=== PATIENT | female | born 1985 | race Caucasian/White ===

== ENCOUNTER → 2017-11-05 | Outpatient (CLI) | payer BC ==
[~2017-11-05] MED LIST: ADVIN10/60 INH; ALBUAER2 INH; LORA10CA2 PO; PRENTAB26 PO; SNG10 PO
[2017-11-05 12:47] LABS: BASO % 0.2 %; BASO ABS # 0.02 K/uL (0-0.2); COMPLETE YES; EOS % 3.6 %; HEMATOCRIT 43.1 % (37-47); IG% 0.1 %; LYMPH % 34.5 %; MEAN CELL VOLUME 90.2 fL (80-100); MEAN CORPUSCULAR HGB CONC 34.3 g/dl (32-36); MEAN PLATELET VOLUME 10.7 fL (7.4-10.4); NEUT % 52.6 %; PLATELET COUNT 283 K/uL (130-400); RED BLOOD COUNT 4.78 M/uL (4.2-5.4)
[2017-11-05 12:52] LABS: ALT/SGPT 21 U/L (12-78); BLOOD UREA NITROGEN 16 mg/dl (7-18); BUN/CREATININE RATIO 24.5 (10-20); CALCIUM 8.6 mg/dl (8.5-10.1); CARBON DIOXIDE 24 mmol/L (21-32); CHLORIDE 108 mmol/L (98-107); CHOLESTEROL 156 mg/dl (0-200); CREATININE 0.67 mg/dl (0.60-1.20); GLUCOSE 92 mg/dl (70-99); SODIUM 139 mmol/L (136-145)
[2017-11-05 13:02] LABS: ALB/GLOB RATIO 1.1 (0.9-2); ALKALINE PHOSPHATASE 84 U/L (45-117); AST/SGOT 13 U/L (15-37); CHOLESTEROL/HDL RATIO 3.8; HDL CHOLESTEROL 41 mg/dl; LDL CHOLESTEROL CALCULATED 101 mg/dl; TRIGLYCERIDES 70 mg/dl (0-150); VERY LOW DENSITY LIPOPROT CALC 14 mg/dl
== END | disposition home or self-care (01) ==
LOC: C.LABBFT 07:41
PROVIDERS: ATTEND Physician Assistant
DX: Z00.00 Encounter for general adult medical examination without abnormal findings (principal); R53.81 Other malaise

== ENCOUNTER → 2017-12-16 | Outpatient (CLI) | payer BC ==
--- NOTE | 2017-12-16 12:38 | DIAGNOSTIC IMAGING REPORT ---
L-SPINE MIN 4 VIEWS ROUTINE HISTORY: 32 years-old Female M54.5 Low back [id number] acute low back pain without reported trauma COMPARISON: None available TECHNIQUE: 5 views of the lumbar spine FINDINGS: There are 5 lumbar type vertebral segments present. No acute fracture, subluxation, significant degenerative changes, spondylolysis or spondylolisthesis. Soft tissues are unremarkable. Moderate stool volume of the descending colon, and rectosigmoid. Mild gaseous distention of colon is seen within the midabdomen. IMPRESSION: 1. No acute fracture or subluxation. 2. No significant degenerative changes. The above report was generated using voice recognition software. It may contain grammatical, syntax or spelling errors. Electronically signed by: Alex Ashley M.D. 12/16/2017 12:37 PM Dictated Date/Time: 12/16/2017 12:35 PM
== END | disposition home or self-care (01) ==
LOC: C.RAD1850 12:09
PROVIDERS: ATTEND Physician Assistant
DX: M54.5 Low back pain (principal)

== ENCOUNTER → 2018-03-14 | Outpatient (CLI) | payer BC | END | disposition home or self-care (01) | LOC: C.PAPS 11:26 | PROVIDERS: ATTEND Obstetrics & Gynecology | DX: Z01.411 Encounter for gynecological examination (general) (routine) with abnormal findings (principal) ==

== ENCOUNTER → 2018-03-14 | Outpatient (CLI) | payer BC | END | disposition home or self-care (01) | LOC: C.LABBFT 07:44 | PROVIDERS: ATTEND Physician Assistant | DX: E55.9 Vitamin D deficiency, unspecified (principal) ==

== ENCOUNTER 2018-04-08 09:05 | Emergency (ER) | payer BC ==
[2018-04-08 09:10] VITALS: TEMP 37.5
[2018-04-08] MEDS ORDERED: VNTHFA/IN INH (09:19)
[2018-04-08] MEDS ORDERED: MONT1TAB5 PO (09:19)
[2018-04-08] MEDS ORDERED: CHOL1000 PO (09:19)
[2018-04-08] MEDS ORDERED: ADVIN10050 INH (09:19)
[2018-04-08] MEDS ORDERED: ONDANSETRON INJ 2 MG/ML 2 ML VIAL IV STA (09:31)
[2018-04-08] MEDS ORDERED: SODIUM CHLORIDE 0.9% 1000ML 1,000 ML IV STA (09:31)
[2018-04-08] MEDS ORDERED: ACETAMINOPHEN IV 100 ML IV ONE (09:45)
[2018-04-08 09:59] LABS: BASO % 0.1 %; BASO ABS # 0.01 K/uL (0-0.2); HEMATOCRIT 45.1 % (37-47); HEMOGLOBIN 16.2 g/dL (12.0-16.0); IG# 0.02 K/uL (0.00-0.02); LYMPH % 13.4 %; LYMPH ABS # 1.11 K/uL (1.2-3.4); MEAN CELL VOLUME 88.1 fL (80-100); MEAN CORPUSCULAR HEMOGLOBIN 31.6 pg (25-34); MEAN CORPUSCULAR HGB CONC 35.9 g/dl (32-36); MEAN PLATELET VOLUME 10.1 fL (7.4-10.4); MONO ABS # 1.07 K/uL (0.11-0.59); NEUT % 73.3 %; NEUT ABS # 6.05 K/uL (1.4-6.5); PLATELET COUNT 254 K/uL (130-400); RED CELL DISTRIBUTION WIDTH CV 12.4 % (11.5-14.5); WHITE BLOOD COUNT 8.26 K/uL (4.8-10.8)
[2018-04-08 10:11] LABS: PTT PATIENT 26.1 SECONDS (21.0-31.0)
[2018-04-08 10:23] LABS: ALBUMIN 3.5 gm/dl (3.4-5.0); ALT/SGPT 23 U/L (12-78); AST/SGOT 15 U/L (15-37); BLOOD UREA NITROGEN 9 mg/dl (7-18); CALCIUM 8.4 mg/dl (8.5-10.1); CARBON DIOXIDE 28 mmol/L (21-32); CREATININE 0.75 mg/dl (0.60-1.20); GLUCOSE 110 mg/dl (70-99); LIPASE 84 U/L (73-393); POTASSIUM 3.7 mmol/L (3.5-5.1); SODIUM 138 mmol/L (136-145)
[2018-04-08 10:24] LABS: ALKALINE PHOSPHATASE 75 U/L (45-117); TOTAL PROTEIN 7.8 gm/dl (6.4-8.2)
--- NOTE | 2018-04-08 10:34 | DIAGNOSTIC IMAGING REPORT ---
ABDOMEN 2VIEW W/PA CHEST RTN CLINICAL HISTORY: 32 years-old Female presenting with ABDOMINAL PAIN/GI. TECHNIQUE: PA view of the chest and supine and upright views of the abdomen were obtained. COMPARISON: Chest x-ray from 2006. FINDINGS: Cardiomediastinal silhouette normal. Lungs and pleural spaces clear. Nonobstructive bowel gas pattern. No gross pneumoperitoneum. Allowing for bowel gas and stool, no calcifications to suggest nephrolithiasis. Osseous structures normal. IMPRESSION: 1. No acute cardiopulmonary disease. 2. No radiographic evidence of acute intra-abdominal pathology. Electronically signed by: Dieter Marquez M.D. 04/08/2018 10:33 AM Dictated Date/Time: 04/08/2018 10:32 AM
[2018-04-08] MEDS ORDERED: ONDA4TAB10 SL (11:09)
[2018-04-08 11:10] VITALS: BP 115/68; PULSE 80; O2SAT 100
--- NOTE | 2018-04-08 16:00 | EMERGENCY ROOM VISIT NOTE ---
ED Visit Note First contact with patient: 09:13 Chief Complaint: Diarrhea and abdominal pain. History of Present Illness: Ms. Yarbrough is a 32-year-old white female who ambulates into the ED accompanied by male friend complaining of hematochezia and abdominal pain. Historically patient denies any previous significant gastrointestinal disorders , bleeding disorders or abdominal surgeries. Patient reports around Wednesday, 3-4 days ago, she started having crampy abdominal pain. She reports initially it was mild has gradually increased in intensity. Currently she reports that the pain is diffuse around her lower abdomen without side prominence. Her pain has been constant but has waxed and waned in intensity. Currently she rates her discomfort 6/10. She does report the pain radiates into the lower back. She reports the pain has waxed and waned in intensity in relationship to eating, vomiting and diarrhea. She has not taken any medications for pain prior to arrival at the hospital. She describes her diarrhea as almost one time in our and last night she started noting bright red blood. Before then her pain was all fluid without any formed component. Additionally she reports over the last 24 hours she has had multiple episodes of vomiting a bilious-like material without blood. She has been having chills and feels like she might of been febrile but did not check her temperature and on one episode she had episode of diaphoresis. She denies headache, dizziness, lightheadedness, upper respiratory tract symptoms, chest pain, shortness of breath, upper abdominal pain, vaginal bleeding, vaginal discharge, urinary symptoms, hematuria, abnormal bruising or bleeding, antibiotic use for 3 months but does report she had antibiotics for an upper respiratory tract infection 4 months ago and no travel outside [place] or personal sick contacts. Review of Systems: As noted above in history of present illness. All body systems were reviewed and found to be negative as noted above. Past Medical History: Asthma, bronchitis, pneumonia and status post wisdom teeth extraction. Current Medications: Medications Dose Route/Sig Max Daily Dose Days Date Category Ventolin Hfa (Albuterol) 200 Puffs/88585 Mcg Aers 2 Puffs INH DAILY PRN 04/08/18 Reported Advair Diskus 100-50 Mcg/Dose (Fluticasone Prop/Salmeterol) 14 Puff/1 Inhaler Aerp 1 Puff INH BID 04/08/18 Reported Montelukast Sodium 10 Mg Tab 10 Mg PO DAILY 90 04/08/18 Reported Vitamin D3 (Cholecalciferol) 1,000 Unit Tab 1,000 Units PO DAILY 90 04/08/18 Reported Claritin (Loratadine) 10 Mg Cap 10 Mg PO DAILY 12/17/12 Reported Allergies to Medications: Patient denies. Social History: Patient is currently employed; she feels safe in her home environment; she denies tobacco and alcohol use. Physical Examination: Vital Signs: Date Time Temp Pulse Resp B/P (MAP) Pulse Ox O2 Delivery O2 Flow Rate FiO2 04/08/18 11:10 80 20 115/68 100 04/08/18 09:10 37.5 110 20 109/73 98 Room Air GENERAL: 32-year-old female in mild to moderate distress due to pain, nontoxic- appearing, afebrile and hemodynamically stable. NEUROLOGICAL: Awake, alert and oriented to person, place and time. Answering questions appropriately and following commands. Normal gait. Good hand eye coordination. No focal motor sensory deficits. SKIN: Warm, dry and pink. No soft tissue eruptions or trauma noted. HEENT: Atraumatic and normocephalic. PERRLA. Sclera white and conjunctiva pink. No drainage from naris. Oral cavity moist and pink. Pharynx is nonerythematous or edematous. Speech normal. No lymphadenopathy. Trachea midline. No jugular venous distention. BACK: No tenderness over the bony spine. No CVA tenderness. THORAX: Lungs sounds are clear to auscultation and equal bilaterally with symmetrical chest wall. No wheezing, rales or rhonchi. No crepitus, tenderness , subcutaneous air or deformities noted. HEART: Regular rate and rhythm. No gallops, rubs or murmurs are appreciated. ABDOMEN: Flat, soft and nontender. Positive bowel sounds in all quadrants. No guarding, rigidity or organomegaly. RECTAL: Deferred on patient's request. EXTREMITIES: Moves all extremities well on command and with purpose. All distal neurovascular statuses are intact and equal bilaterally. ED Course: Patient is assessed as noted above. Patient's medication list was reviewed. Laboratory Testing: Test 04/08/18 09:48 Range/Units White Blood Count 8.26 4.8-10.8 K/uL Red Blood Count 5.12 4.2-5.4 M/uL Hemoglobin 16.2 12.0-16.0 g/dL Hematocrit 45.1 37-47 % Mean Corpuscular Volume 88.1 80-100 fL Mean Corpuscular Hemoglobin 31.6 25-34 pg Mean Corpuscular Hemoglobin Concent 35.9 32-36 g/dl Platelet Count 254 130-400 K/uL Mean Platelet Volume 10.1 7.4-10.4 fL Neutrophils (%) (Auto) 73.3 % Lymphocytes (%) (Auto) 13.4 % Monocytes (%) (Auto) 13.0 % Eosinophils (%) (Auto) 0.0 % Basophils (%) (Auto) 0.1 % Neutrophils # (Auto) 6.05 1.4-6.5 K/uL Lymphocytes # (Auto) 1.11 1.2-3.4 K/uL Monocytes # (Auto) 1.07 0.11-0.59 K/uL Eosinophils # (Auto) 0.00 0-0.5 K/uL Basophils # (Auto) 0.01 0-0.2 K/uL RDW Standard Deviation 40.0 36.4-46.3 fL RDW Coefficient of Variation 12.4 11.5-14.5 % Immature Granulocyte % (Auto) 0.2 % Immature Granulocyte # (Auto) 0.02 0.00-0.02 K/uL Prothrombin Time 10.1 9.0-12.0 SECONDS Prothromb Time International Ratio 1.0 0.9-1.1 Activated Partial Thromboplast Time 26.1 21.0-31.0 SECONDS Partial Thromboplastin Ratio 1.0 Urine Color DK YELLOW Urine Appearance CLOUDY CLEAR Urine pH 5.0 4.5-7.5 Urine Specific [place] 1.027 1.000-1.030 Urine Protein NEG NEG Urine Glucose (UA) NEG NEG Urine Ketones 1+ NEG Urine Occult Blood NEG NEG Urine Nitrite NEG NEG Urine Bilirubin NEG NEG Urine Urobilinogen NEG NEG Urine Leukocyte Esterase NEG NEG Urine WBC (Auto) 1-5 0-5 /hpf Urine RBC (Auto) 0-4 0-4 /hpf Urine Hyaline Casts (Auto) 1-5 0-5 /lpf Urine Epithelial Cells (Auto) >30 0-5 /lpf Urine Bacteria (Auto) NEG NEG Sodium Level 138 136-145 mmol/L Potassium Level 3.7 3.5-5.1 mmol/L Chloride Level 107 98-107 mmol/L Carbon Dioxide Level 28 21-32 mmol/L Anion Gap 3.0 3-11 mmol/L Blood Urea Nitrogen 9 7-18 mg/dl Creatinine 0.75 0.60-1.20 mg/dl Estimated GFR () 124.0 Estimated GFR (Non- 107.0 BUN/Creatinine Ratio 12.6 10-20 Random Glucose 110 70-99 mg/dl Calcium Level 8.4 8.5-10.1 mg/dl Total Bilirubin 0.4 0.2-1 mg/dl Direct Bilirubin < 0.1 0-0.2 mg/dl Aspartate Amino Transf (AST/SGOT) 15 15-37 U/L Alanine Aminotransferase (ALT/SGPT) 23 12-78 U/L Alkaline Phosphatase 75 45-117 U/L Total Protein 7.8 6.4-8.2 gm/dl Albumin 3.5 3.4-5.0 gm/dl Lipase 84 73-393 U/L Human Chorionic Gonadotropin, Qual NEG NEG Acute Abdominal Series: Was read by myself and the radiologist showing a normal- appearing PA chest with no signs of infiltrates, effusions or pneumothorax. Normal heart silhouette and bony anatomy. Abdominal component shows a nonobstructive bowel gas pattern with no gross pneumoperitoneum. Patient was hydrated with normal saline and received 4 mg of Zofran IV and 1 g of acetaminophen IV for her symptoms. Patient was reassessed multiple times during her stay in the emergency department. I was informed patient was able to give me a stool sample but then accidentally urinated and it. It was reported as grossly visually bloody by nursing staff. She was not able to provide an additional sample for testing. Patient's case was reviewed with Dr. Muniz; we agreed on diagnostic approach, treatment, disposition and plan. Clinical Impression: Lower abdominal pain. Hematochezia. Decision-Making: Initially in my my differential diagnosis I considered lower GI bleed, upper GI bleed, colitis, colon cancer, colonic infection and other causes. Disposition: Patient was discharged home in stable condition accompanied by her ; prior to departure she was reassessed and subjectively reported she was feeling much better and rated her discomfort 2/10. Plan: Patient was encouraged you 650 mg of acetaminophen every 6 hours as needed for pain. Patient was prescribed Zofran 4 mg every 6 hours as needed for nausea/vomiting. Patient was encouraged to use a bland diet for 48 hours and avoid stomach/ gastrointestinal irritants. Patient was encouraged to stay well-hydrated with increased clear fluids. Patient was encouraged to contact her family physician and request follow-up care and treatment and possible referral to GI specialist for colonoscopy. Patient was encouraged return to the ED for worsening/uncontrolled pain, worsening bloody stools, black/tarry stools, fevers, bloody vomitus or any new/ concerning symptoms. Additionally patient was given a prescription for stool studies that will to be forwarded to her PCP, Dr. Brian
--- NOTE | 2018-04-11 17:46 | Pharmacy Progress Note ---
ED Pharmacist Culture FollowUp Date of Service: April 11, 2018. Salmonella (Group D) isolated from stool culture. Called patient - no answer. Left message to call back and provided ED #.
== END 2018-04-08 11:25 | disposition home or self-care (01) ==
LOC: C.EDB 09:07
DX: K92.1 Melena (principal); R10.30 Lower abdominal pain, unspecified; M54.5 Low back pain; R61 Generalized hyperhidrosis; R50.9 Fever, unspecified; J45.909 Unspecified asthma, uncomplicated; Z79.899 Other long term (current) drug therapy